=== PATIENT | male | born 1995 | race African-American/Black ===

== ENCOUNTER 2018-04-17 15:19 | Emergency (ER) | payer SELFPAY ==
[~2018-04-17] VITALS: Ht 165.1 cm; Wt 63.6 kg
[2018-04-17] MEDS ORDERED: IBUPROFEN 600 MG TABLET PO ONE (16:30)
[2018-04-17] MEDS ORDERED: HYDROCODONE/ACETAMINOPHEN 5-325 MG TABLET PO ONE (16:30)
[2018-04-17 17:05] VITALS: BP 127/78
== END 2018-04-17 17:05 | disposition home or self-care (01) ==
LOC: EMS 15:22
DX: K02.9 Dental caries, unspecified (principal); Z88.0 Allergy status to penicillin
CPT/HCPCS: 99283